=== PATIENT | female | born 1980 | race Two or more races ===

== ENCOUNTER 2019-06-29 23:57 | Emergency (ER) | payer OTHER ==
[~2019-06-29] VITALS: Ht 160 cm; Wt 63.2 kg
[2019-06-30] MEDS ORDERED: SUMA6VIA18 SQ (00:07)
[2019-06-30] MEDS ORDERED: ALBU8HFA IH (00:07)
[2019-06-30] MEDS ORDERED: TOPI100T37 PO (00:07)
[2019-06-30] MEDS ORDERED: ALBUTEROL SULFATE 2.5 MG/0.5 ML NEB SOLUTION NEB ONE (00:15)
[2019-06-30] MEDS ORDERED: IPRATROPIUM BROMIDE 0.5 MG/2.5 ML NEB SOLUTION NEB ONE (00:15)
[2019-06-30] MEDS ORDERED: DEXAMETHASONE SOD PHOS 4 MG/ML 5 ML VIAL IM ONE (01:00)
[2019-06-30] MEDS ORDERED: ALBUTEROL SULFATE 5 MG/ML 20 ML NEB SOLN [BULK] NEB ONE (01:45)
[2019-06-30] MEDS ORDERED: 0.9% SODIUM CHLORIDE 5 ML NEB SOLUTION NEB ONE (02:02)
[2019-06-30 02:08] VITALS: BP 145/70
== END 2019-06-30 02:21 | disposition home or self-care (01) ==
LOC: EEVIPCON 23:58 → EMS 23:58
DX: J45.909 Unspecified asthma, uncomplicated (principal); G43.909 Migraine, unspecified, not intractable, without status migrainosus; Z88.8 Allergy status to other drugs, medicaments and biological substances
CPT/HCPCS: 71046; 87430; 94640 ×2; 96372; 99284; J1100